=== PATIENT | male | born 1980 | race Asian ===

== ENCOUNTER 2021-01-26 03:23 | Emergency (ER) | payer OTHER ==
[2021-01-26 03:56] LABS: HEMOGLOBIN 16.8 gm/dl (14.0-17.5); RED BLOOD COUNT 5.26 M/UL (4.20-5.50); WHITE BLOOD COUNT 10.6 K/UL (4.5-11.0)
[2021-01-26 04:16] LABS: BUN/CREATININE RATIO 13 (0-10)
[2021-01-26] MEDS ORDERED: ZOFRAN ODT 4 MG4 MG SL (05:38)
[2021-01-26] MEDS ORDERED: TORADOL 10 MG T10 MG PO (05:38)
[2021-01-26] MEDS ORDERED: HYDROCODON-ACE1 EAC4 PO (05:50)
== END 2021-01-26 06:08 | disposition home or self-care (01) ==
LOC: ER1 03:23
PROVIDERS: Physician Assistant
DX: N13.2 Hydronephrosis with renal and ureteral calculous obstruction (principal)
CPT/HCPCS: 80053; 81001; 85025; 96374; 96375; 99284; J1885; J2405